=== PATIENT | female | born 1955 | race Caucasian/White ===

== ENCOUNTER → 2017-04-21 | Outpatient (CLI) | payer BC, OTHER ==
[~2017-04-21] MED LIST: ASPEC81 PO; CHOL100010 PO; DICL1GEL28; NAPR-1169 PO; PRMVC; SYN112 PO; TRIA0.1C20 TD
== END | disposition home or self-care (01) ==
LOC: C.LABPBG 12:04
PROVIDERS: ATTEND Physician Assistant
DX: H61.23 Impacted cerumen, bilateral (principal); H81.01 Meniere's disease, right ear

== ENCOUNTER 2021-10-31 08:00 | Inpatient (IN) ==
--- NOTE | 2021-10-24 13:33 | PAT Medication Instructions ---
Medication Instructions Date of Service October 24, 2021 Home Medications Medication Instructions Recorded fluocinolone acetonide oil 0.01 % 4 drp OTIC (EAR) BID PRN 0 Days 12/13/20 ear drops #20 ml benzonatate 100 mg capsule 100 mg PO BID PRN #90 cap 06/16/21 famotidine 20 mg tablet 20 mg PO QPM #90 tab 09/29/21 betamethasone, augmented 0.05 % topical cream 1 appln TOP QAM melatonin 3 mg capsule 3 mg PO HS PRN fluocinolone acetonide oil 0.01 % ear drops 4 drp OTIC (EAR) BID PRN lactobacillus combination no.4 3 billion cell capsule (Probiotic) 3,000 mmu cells PO DAILY benzonatate 100 mg capsule 100 mg PO BID PRN aspirin 81 mg tablet,delayed release (Adult Low Dose Aspirin) 81 mg PO QAM famotidine 20 mg tablet 20 mg PO QPM multivitamin 1 tab PO QAM calcium carbonate 600 mg calcium (1,500 mg) tablet (Calcium) 600 mg PO QAM digestive enzymes 1 tab PO DAILY estradiol 1 g VAGINAL .2x weekly levothyroxine 112 mcg tablet 112 mcg PO QAM mometasone 50 mcg/actuation nasal spray 2 spray INTRANASAL DAILY PRN omeprazole 20 mg capsule,delayed release 20 mg PO QAM potassium chloride 20 mEq tablet,extended release(part/cryst) 20 meq PO QAM triamterene 37.5 mg-hydrochlorothiazide 25 mg capsule 1 cap PO QAM ASK your surgeon for instructions estradiol 1 g VAGINAL .2x weekly ASK your prescriber and surgeon aspirin 81 mg tablet,delayed release (Adult Low Dose Aspirin) 81 mg PO QAM STOP taking 24 hours before surgery betamethasone, augmented 0.05 % topical cream 1 appln TOP QAM DO NOT take the morning of surgery lactobacillus combination no.4 3 billion cell capsule (Probiotic) 3,000 mmu cells PO DAILY benzonatate 100 mg capsule 100 mg PO BID PRN multivitamin 1 tab PO QAM calcium carbonate 600 mg calcium (1,500 mg) tablet (Calcium) 600 mg PO QAM digestive enzymes 1 tab PO DAILY potassium chloride 20 mEq tablet,extended release(part/cryst) 20 meq PO QAM triamterene 37.5 mg-hydrochlorothiazide 25 mg capsule 1 cap PO QAM Take morning of surgery With a small sip of water, OTHERWISE NOTHING TO EAT OR DRINK AFTER MIDNIGHT: fluocinolone acetonide oil 0.01 % ear drops 4 drp OTIC (EAR) BID PRN (if needed) levothyroxine 112 mcg tablet 112 mcg PO QAM mometasone 50 mcg/actuation nasal spray 2 spray INTRANASAL DAILY PRN (if needed) omeprazole 20 mg capsule,delayed release 20 mg PO QAM Take evening before surgery melatonin 3 mg capsule 3 mg PO HS PRN (if needed) fluocinolone acetonide oil 0.01 % ear drops 4 drp OTIC (EAR) BID PRN (if needed) benzonatate 100 mg capsule 100 mg PO BID PRN (if needed) famotidine 20 mg tablet 20 mg PO QPM mometasone 50 mcg/actuation nasal spray 2 spray INTRANASAL DAILY PRN (if needed) Other Notes If you have any questions please call us at [phone] or [phone] or [phone] or [phone]
--- NOTE | 2021-10-27 16:00 | Anesthesiology Consultation ---
Date of Service October 27, 2021 Assessment & Plan (1) Encounter for pre-operative examination: - Pt acceptable to proceed with exception to surgery name needed on booking sheet corrected by surgeon's office per OR. - cardio 07/08/21 [place]: "...SVT...seemed to correlate with fleeting palpitations...infrequent...normal evaluation...in the absence of new or worsening symptoms she does not require any additional cardiovascular disease...does not require any cardiology follow-up...could decrease the metoprolol dose to 12.5 mg daily for a month...in the absence of worsening symptoms she could eliminate the medication altogether..." - COVID screening: Per assessment on 10/27/2021: Travel screen negative, no known COVID-19 positive contacts or current COVID-19 related symptoms in past 2 weeks. Pt vaccinated. Surgeon arranging preop COVID testing, scheduled 10/29/2021. Awaiting results. Chart Review Chart Review: Pending: Refer to Additional Notes / Consult section and Patient seen in Pre Admission Testing Teaching & Discussion Pre-Anesthesia Teaching/Discussion Notes: Instructed NPO after midnight before surgery, except medications with 15 cc of water. Medication instructions provided according to the PAT guidelines. History Surgery Operation Date: 10/31/21 12:35 Proposed Procedures p Anterior Posterior Repair - Fransisco Frias MD Height/Weight Height: 5 ft 1 in Weight: 87.5 kg Allergies Allergy/AdvReac Type Severity Reaction Status Date / Time morphine Allergy Mild HIVES Verified 10/24/21 12:30 Influenza Virus Vaccines Allergy Unknown severe Verified 10/27/21 16:05 nausea and vomiting meperidine [From Demerol] Allergy Unknown Vomiting Verified 10/24/21 12:30 acetaminophen AdvReac Intermediate nausea, Verified 10/27/21 16:05 vomiting, spaced out oxycodone AdvReac Intermediate nausea, Verified 10/27/21 16:05 vomiting, spaced out zoster vaccine live AdvReac Intermediate severe Verified 10/27/21 16:05 nausea and vomiting codeine AdvReac Mild NAUSEA Verified 10/24/21 12:30 NARCOTICS Allergy Mild Vomiting Uncoded 10/24/21 12:31 Medications Home Medications Medication Instructions Recorded Confirmed Last Taken betamethasone, augmented 0.05 % 1 appln TOP QAM 01/10/20 10/24/21 Unknown topical cream melatonin 3 mg capsule 3 mg PO HS PRN 01/10/20 10/24/21 Unknown fluocinolone acetonide oil 0.01 % 4 drp OTIC (EAR) BID PRN 0 Days 12/13/20 10/24/21 Unknown ear drops #20 ml lactobacillus combination no.4 3 3,000 mmu cells PO DAILY 04/15/21 10/24/21 Unknown billion cell capsule (Probiotic) benzonatate 100 mg capsule 100 mg PO BID PRN #90 cap 06/16/21 10/24/21 Unknown aspirin 81 mg tablet,delayed 81 mg PO QAM 07/04/21 10/24/21 Unknown release (Adult Low Dose Aspirin) famotidine 20 mg tablet 20 mg PO QPM #90 tab 09/29/21 10/24/21 Unknown multivitamin 1 tab PO QAM 09/29/21 10/24/21 Unknown calcium carbonate 600 mg calcium 600 mg PO QAM 10/14/21 10/24/21 Unknown (1,500 mg) tablet (Calcium) digestive enzymes 1 tab PO DAILY 10/14/21 10/24/21 Unknown estradiol 1 g VAGINAL .2x weekly g 10/14/21 10/24/21 Unknown levothyroxine 112 mcg tablet 112 mcg PO QAM 10/24/21 10/24/21 Unknown mometasone 50 mcg/actuation nasal 2 spray INTRANASAL DAILY PRN 10/24/21 10/24/21 Unknown spray omeprazole 20 mg capsule,delayed 20 mg PO QAM 10/24/21 10/24/21 Unknown release potassium chloride 20 mEq 20 meq PO QAM 10/24/21 10/24/21 Unknown tablet,extended release(part/cryst) triamterene 37.5 1 cap PO QAM 10/24/21 10/24/21 Unknown mg-hydrochlorothiazide 25 mg capsule Past Medical History Medical History (Updated 10/27/21 @ 16:24 by Niya Juarez PA-C) Acid reflux controlled, stable per pt Conductive hearing loss, unilateral, right ear, with unrestricted hearing on the contralateral side FROM MENIERE'S DISEASE History of COVID-19 05/2021 LOSS OF TASTE AND SMELL, COUGH, CONGESTION, FEVER, ACHY, CHILLS-r esidual loss of taste or smell Hyperlipidemia Hypothyroidism Meniere disease Nausea and vomiting after administration of anesthetic agent denies needing scop patch SVT (supraventricular tachycardia) follows with [facility] and PCP, was advised can d/c beta shanta at 07/08/21 visit, pt denies change in chronic palpitations since d/c med Tricuspid regurgitation mild on 2019 echo Patient denies h/o stroke, seizures, heart attack, heart failure, DM, HTN, blood clots or blood transfusions. Exercise / Class Metabolic Activity II 4-5 Yardwork/Stairs/Walk up hill (denies CP or SOB with 1 FOS) Past Family History Family History Father Family history of bleeding disorder Myocardial infarction Pancreatic cancer Sinusitis Brother Asthma Mother Stroke Hypertension Uncle Colorectal cancer Grandfather (Paternal) Myocardial infarction Other Ellis's palsy Denies family history of Ovarian cancer Prostate cancer Hearing loss Allergies Breast cancer Past Surgical History Surgical History (Updated 10/27/21 @ 16:06 by Niya Juarez PA-C) History of cholecystectomy stent placed History of elbow surgery R tendon repair History of hernia repair History of hysterectomy History of pancreatic surgery S/P arthroscopic knee surgery RIGHT Past Anesthesia History No Family Hx of Anesthesia Complications and Other (slow to wake-denies re- intubation or unanticipated hospitalizations) History of PONV History of PONV (denies needing scop patch) and Hx of Motion Sickness Social History Smoking Status: Never smoker Do You Dip or Chew Tobacco: No Hx Alcohol Use: No Hx Substance Use: No substance use type: does not use Review of Systems Snoring, denies witnessed apneas or sleep studies. Patient denies chest pain, shortness of breath, dyspnea on exertion, fever, chills, cough, or wheezing. Physical Exam Vital Signs Vitals BP 127/84 P 59 TEMP 97.6 SP02 98% on RA RESP 17 Physical Full cervical extension range of motion without pain TMD 3.5 finger breaths Mallampati Score 3 Dentition: intact, denies loose or chipped teeth, caps/crowns, implants or bridges Lungs: normal respiratory effort. Clear throughout to auscultation, no adventitious breath sounds Cardiac: regular rate and rhythm, no murmurs noted Carotid arteries: negative bruit bilat Lab Results Anesthesia Preop Results Results Anesthesia Widget: WBC 6.92 K/uL (4.8-10.8) 10/27/21 Hgb 15.4 g/dL (12.0-16.0) 10/27/21 Hct 43.7 % (37-47) 10/27/21 Plt 199 K/uL (130-400) 10/27/21 Na 139 mmol/L (136-145) 10/27/21 K 3.6 mmol/L (3.5-5.1) 10/27/21 Cl 101 mmol/L (98-107) 10/27/21 CO2 31 mmol/L (21-32) 10/27/21 BUN 11 mg/dl (6-23) 10/27/21 Creat 0.89 mg/dl (0.6-1.2) 10/27/21 Glucose Level 83 mg/dl (70-99(Fasting)) 10/27/21 PT 10.3 Seconds (9.0-12.0) 10/27/21 PTT 24.8 Seconds (21.0-31.0) 10/27/21 INR 1.0 (0.9-1.1) 10/27/21 HA1c 5.4 % (4.5-5.6) 10/15/21 Blood Type A Positive 10/27/21 Antibody Screen NEGATIVE 10/27/21 Testing Electrocardiogram Date: 02/17/21 NSR, rate 61 bpm Chest X-Ray Date: 07/23/21 No acute process Echocardiogram Date: 01/31/20 EF 55-59% Mild tricuspid regurgitation No evidence of pulmonary hypertension
--- NOTE | 2021-10-28 14:46 | History and Physical Report ---
DATE OF ADMISSION: 10/31/2021 CHIEF COMPLAINT: Mass protruding from the vagina. HISTORY OF PRESENT ILLNESS: The patient is a 66-year-old 3, para 2, had one spontaneous AB at 20 weeks, underwent a total abdominal hysterectomy, bilateral salpingo-oophorectomy at age 53 for pelvic pain. She has had a mass protruding from the vagina when she coughs, sneezes or strains, present for over 6 months, getting progressively worse, makes her uncomfortable. At times she has to void real frequently. Incontinence is moderate, but getting progressively worse. Her symptoms are also increasing in severity. She is presently being scheduled for an outpatient anterior repair, possible posterior repair and insertion of a suprapubic cysto cath. PAST SURGICAL HISTORY: Had a TULIO-BSO, had her gallbladder removed, had a right elbow surgery, right knee surgery. PAST MEDICAL HISTORY: She is on a blood pressure medication medication for Meniere's disease. SOCIAL HISTORY: No smoking. No excessive alcohol intake. Retired. FAMILY HISTORY: Two children in good health. Mom at age 71, stroke, myocardial infarction, congestive heart failure. Father at age 75, myocardial infarction, eventually he from pancreatic cancer. She had one brother that was born with a cardiac defect, at . She had another brother at age 59, is a survivor of hairy cell leukemia and has a history of asthma. REVIEW OF SYSTEMS: HEAD: No symptoms of frequent or severe headaches. EYES: No symptoms of blurred vision or double vision. EARS: No symptoms of frequent ear infection or difficulty hearing. NOSE: No symptoms of frequent nosebleeds or difficulty breathing through her nose. THROAT: No symptoms of frequent or severe sore throat or difficulty swallowing. RESPIRATORY: No history of asthma, chest pain, or shortness of breath. PHYSICAL EXAMINATION: GENERAL: Well-developed, well-nourished 66-year-old white female, alert, oriented x3, cooperative, in no acute distress, appeared her stated age. EYES: Conjunctivae are pink. Sclerae white, no evidence of jaundice. EARS: Had normal light reflex bilaterally. NOSE: Had normal mucosa. Septum is midline. There were no polyps. THROAT: No erythema or evidence of infection. Teeth are in good state of repair. HEAD: Normocephalic, normal distribution of hair. NECK: Supple. Trachea midline. Thyroid is not enlarged. There is no adenopathy appreciated. Both carotids are of good intensity. CHEST: Clear to auscultation and percussion. No wheezes, rales or rhonchi appreciated. HEART: Had regular rhythm. S1 and S2 are normal. BREASTS: Normal. ABDOMEN: Revealed a well-healed Pfannenstiel scar. PELVIC: Revealed good support of the vaginal cuff. A second degree cystocele, which protruded through the vaginal opening when she coughs, sneezes or strains. MUSCULOSKELETAL: Revealed no calf tenderness. IMPRESSION OF THIS CASE: Status post cholecystectomy, status post total abdominal hysterectomy with bilateral salpingo-oophorectomy, status post right elbow surgery, status post right knee surgery and symptomatic cystocele. Job ID: [id number] [facility]
[~2021-10-31 08:00] MED LIST changes: +ACETAMINOPHEN 1000 MG/100 ML IV IV ONE; -ASPEC81 PO; -CHOL100010 PO; -DICL1GEL28; +FAMOTIDINE/PF 20 MG/2 ML VIAL IV ONE; +LR 15ML/HR IV SCH; -NAPR-1169 PO; -PRMVC; +ROCURONIUM BROMIDE 10 MG/ML 5 ML VIAL IV ONE; +SCOPOLAMINE 1 MG TDSY TD ONE; -SYN112 PO; -TRIA0.1C20 TD; +cefOXitin 2,000 MG in DEXTROSE 5% 50 ML IV SCH
[2021-10-31] MEDS ORDERED: MIDAZOLAM HCL 1 MG/ML 2ML VIAL ONE (08:03)
[2021-10-31] MEDS ORDERED: fentaNYL citrate 100 MCG/2 ML VIAL ONE ×2 (08:04→12:23)
[2021-10-31] MEDS ORDERED: METOCLOPRAMIDE HCL INJ 5 MG/ML 2 ML VIAL ONE (08:05)
[2021-10-31] MEDS ORDERED: ONDANSETRON INJ 2 MG/ML 2 ML VIAL ONE (08:05)
[2021-10-31] MEDS ORDERED: DEXAMETHASONE SOD INJ 4 MG/ML VIAL ONE (08:05)
[2021-10-31] MEDS ORDERED: PROPOFOL IV EMULSION 10 MG/ML 20 ML VIAL IV ONE (08:05)
[2021-10-31] MEDS ORDERED: LIDOCAINE 2% 2 ML VIAL/AMP(20MG/ML) INFIL ONE (08:05)
[2021-10-31] MEDS ORDERED: ONDANSETRON INJ 2 MG/ML 2 ML VIAL IV PRN (09:05)
[2021-10-31] MEDS ORDERED: ATROPINE SULFATE 0.1 MG/ML 10ML SYR IV PRN (09:05)
[2021-10-31] MEDS ORDERED: ePHEDrine sulfate 50 MG/ML AMP IV PRN (09:05)
[2021-10-31] MEDS ORDERED: LIDOCAINE 1%/EPINEPHRINE 1:100,000 50 ML VIAL ONE (09:25)
--- NOTE | 2021-10-31 09:40 | History & Physical Bridge Note ---
Date of Service October 31, 2021 History & Physical Bridge Note I have examined the patient, reviewed the History & Physical and in the interval since the performance of the History & Physical I have noted the following changes of clinical significance: no changes noted
[2021-10-31] MEDS ORDERED: diphenhydrAMINE 50 MG/ML VIAL ONE ×2 (10:20→10:34)
[2021-10-31] MEDS ORDERED: KETOROLAC 30 MG/ML VIAL ONE (10:35)
[2021-10-31] MEDS ORDERED: NEOSTIGMINE METHYLSULFATE 1 MG/ML 10ML VIAL ONE (10:53)
[2021-10-31] MEDS ORDERED: GLYCOPYRROLATE 0.2 MG/ML VIAL ONE (10:53)
[2021-10-31] MEDS ORDERED: PREMARIN VAG CRM 14 APPLN/30 GM TUBE ONE (11:33)
[2021-10-31] MEDS ORDERED: ACETAMINOPHEN 1000 MG/100 ML IV IV ONE (11:56)
--- NOTE | 2021-10-31 12:17 | Post Operative Brief Note ---
Immediate Post Op Note v1 Date of Surgery October 31, 2021 Pre & Post Diagnosis Operation Date: 10/31/21 09:50 Pre-Op Diagnosis: Cystocele, Urinary Frequency, Rectocele Post-Op Diagnosis: Cystocele I identified the patient and participated in the time-out.: Yes Procedure Operation Date: 10/31/21 09:50 Actual Procedures p Anterior Colpoperineorrhaphy with Insertion of Subrapubic Cystocath(Not Applicable) - Fransisco Frias MD Surgeon Fransisco Frias MD Bottom Polisher none Estimated Blood Loss 20 Findings Consistent with Post-Op Diagnosis third degree cystocele Drains Suprapubic Catheter Anesthesia Type General Complications none Disposition Disposition: Recovery Room
--- NOTE | 2021-10-31 12:30 | Anesthesiology Progress Note ---
Date of Service October 31, 2021 Anesthesia Post Procedure Vital Signs Vital Signs: Temp Pulse Resp BP Pulse Ox 10/31/21 08:44 98.2 F 67 22 127/79 96 Transfer of Care Handoff Completed per policy Notes Mental Status: alert / awake / arousable and participated in evaluation Patient Amnestic to Procedure: Yes Nausea / Vomiting: adequately controlled Pain: adequately controlled Airway Patency, RR, SpO2: stable & adequate BP & HR: stable & adequate Hydration State: stable & adequate Anesthetic Complications: no major complications apparent and Pt Satisfied with anesthetic care
[2021-10-31] MEDS: fentaNYL citrate 100 MCG/2 ML VIAL IV PRN ×2 (12:44→12:49)
[2021-10-31] MEDS ORDERED: bisacodyL 10 MG SUPP PR PRN (14:18)
[2021-10-31] MEDS ORDERED: MAGNESIUM HYDROXIDE SUSP 30 ML UDC PO PRN (14:18)
[2021-10-31] MEDS ORDERED: SENNA 8.6 MG TAB PO PRN (14:18)
[2021-10-31] MEDS ORDERED: MEPERIDINE HCL 50 MG/ML CARP IV PRN (14:18)
[2021-10-31] MEDS: KETOROLAC 30 MG/ML VIAL IV PRN ×2 (14:44→22:29)
--- NOTE | 2021-10-31 15:54 | Electrocardiogram Report ---
Test Reason : Blood Pressure : / mmHG Vent. Rate : 064 BPM Atrial Rate : 064 BPM P-R Int : 154 ms QRS Dur : 086 ms QT Int : 424 ms P-R-T Axes : 042 028 045 degrees QTc Int : 437 ms Normal sinus rhythm Normal ECG When compared with ECG of 10-FEB-2019 14:12, No significant change was found Confirmed by Scott Osullivan ([id number]) on 10/31/2021 3:54:00 PM Referred By: Fransisco Frias Confirmed By:Scott Osullivan
[2021-10-31] MEDS: D5W AND LACTATED RINGERS 1,000 ML IV SCH (16:07)
--- NOTE | 2021-10-31 16:41 | Operative Report (OR) ---
DATE OF PROCEDURE: 10/31/2021 PROCEDURE PERFORMED: Anterior colporrhaphy, insertion of suprapubic cysto cath. INDICATIONS FOR SURGERY: Mass protruding from the vagina on coughing or sneezing, incomplete emptying of the bladder. PREOPERATIVE DIAGNOSIS: Symptomatic cystocele, second to third degree. POSTOPERATIVE DIAGNOSIS: Symptomatic cystocele, second to third degree. SURGEON: Marlene Frias MD. ESTIMATED BLOOD LOSS: 20 mL. ANESTHESIA: General. OPERATIVE FINDINGS AND PROCEDURE: The patient was brought to the OR table, correctly identified by a rmband and conversation. General anesthesia was administered. Perineum and vagina were painted with Betadine paint, draped in usual sterile fashion. Careful pelvic exam revealed a second to third deg ree cystocele. We emptied the bladder, obtained 400 mL. We then did a Betadine prep and draped in t he usual sterile fashion and proceeded with an anterior colporrhaphy. I grabbed the anterior vaginal mucosa 1 cm from the external urethral meatus in the midline, infiltrated the cystocele with local w ith epinephrine, then started the incision with a knife and carried the incision up to the vaginal cu ff with the baby Yan. Then, I carefully dissected the bladder off the anterior vaginal mucosa and th is included the support tissues to the bladder neck. I then used a 3-0 Vicryl with interrupted figur e-of-eight sutures to reduce the cystocele. This was done in 2 layers because of the size of the cys tocele. Then, the excess vaginal mucosa was removed. A support stitch was placed at the urethrovesic al angle with a heavy chromic gut suture and this brought the paravaginal tissues under the urethral angle for support and in addition, we did a mattress suture to bolster that support also. We then ap proximated the vaginal mucosa with interrupted [id number] sutures of 3-0 Vicryl up to the vagina l cuff. At this time, I checked the vaginal capacity, it was adequate, accepted 2 fingers with a anamaria le bit of leeway, we decided against doing a rectocele feeling that it would compromise vaginal volum e and sexual function. Following this, we removed the urine in the bladder that was clear. We then instilled 480 mL of normal saline, prepped the suprapubic area. I used a trocar to enter the bladder and then inserted a catheter and then I sewed a catheter in place with silk suture. I then followin g this removed about 240 mL of urine and connected it to gravity drainage. We also packed the vagina with a ____ of 1 inch iodoform packing with estrogen cream. The patient tolerated the procedure well . Estimated blood loss was only 20 mL. Job ID: [id number]
--- NOTE | 2021-10-31 17:42 | Anesthesiology Progress Note ---
Date of Service October 31, 2021 Anesthesia Post Procedure Vital Signs Vital Signs: Temp Pulse Pulse Resp BP BP Pulse Ox 10/31/21 17:00 69 16 118/75 98 10/31/21 16:00 36.3 C L 58 L 16 110/72 95 10/31/21 15:00 63 18 125/83 96 10/31/21 14:25 56 L 18 123/70 97 10/31/21 13:55 36.4 C L 56 L 18 131/85 98 10/31/21 13:35 36.5 C 59 L 16 136/78 99 10/31/21 13:25 59 L 18 129/80 100 10/31/21 13:15 52 L 17 143/79 H 100 10/31/21 13:05 36.6 C 65 12 130/91 100 10/31/21 12:55 70 14 134/93 93 10/31/21 12:45 68 16 124/86 93 10/31/21 12:35 70 17 139/87 100 10/31/21 12:25 63 14 147/86 H 100 10/31/21 12:14 36.4 C L 80 19 152/107 H 98 10/31/21 08:44 36.8 C 67 22 127/79 96 Pain Intensity Abdomen: Pain Intensity: 4 Transfer of Care Handoff Completed per policy Notes Mental Status: alert / awake / arousable Patient Amnestic to Procedure: Yes Nausea / Vomiting: adequately controlled Pain: adequately controlled Airway Patency, RR, SpO2: stable & adequate BP & HR: stable & adequate Hydration State: stable & adequate Anesthetic Complications: no major complications apparent
[2021-11-01 00:51] LABS: Hematocrit (blood only) 41.3 % (37-47); Hemoglobin 14.5 g/dL (12.0-16.0)
[2021-11-01] MEDS: KETOROLAC 30 MG/ML VIAL IV PRN (06:24)
--- NOTE | 2021-11-01 09:09 | Obstetrical Progress Note ---
Date of Service November 01, 2021 Assessment & Plan Admission and Anticipated Discharge Date Admission Date: October 31, 2021 Subjective urine clear output good no calf tenderness abdomen soft and non tender vaginal packing in place vaginal bleeding scant hgb 14.5 Results & Data ([facility]) Vital Signs (Past 12 Hours) Vital Signs Temp Pulse Resp BP Pulse Ox 11/01/21 04:25 36.8 C 66 16 101/68 95 11/01/21 00:00 36.8 C 60 18 103/63 93
[2021-11-01] MEDS: IBUPROFEN 600 MG TAB PO PRN ×3 (09:44→21:27)
[2021-11-01] MEDS: POTASSIUM CHLORIDE CRTAB 20 MEQ TABCR PO SCH (11:03)
[2021-11-01] MEDS: ACETAMINOPHEN 325 MG TAB PO PRN (11:03)
[2021-11-01] MEDS: ASPIRIN 81 MG ECTAB PO SCH (11:04)
[2021-11-01] MEDS: TRIAMTERENE/HCTZ 37.5/25MG CAP PO SCH (11:04)
[2021-11-01] MEDS: LEVOTHYROXINE SODIUM 112 MCG TABLET PO SCH (14:07)
[2021-11-01] MEDS: D5W AND LACTATED RINGERS 1,000 ML IV SCH ×2 (18:44→22:00)
[2021-11-01] MEDS: FAMOTIDINE 20 MG TAB PO SCH (21:24)
[2021-11-01] MEDS: oxyCODONE/ACETAMINOPHEN 5mg/325mg TAB PO PRN (21:27)
[2021-11-02] MEDS: ACETAMINOPHEN 325 MG TAB PO PRN (04:29)
[2021-11-02] MEDS: POTASSIUM CHLORIDE CRTAB 20 MEQ TABCR PO SCH (07:50)
[2021-11-02] MEDS: ASPIRIN 81 MG ECTAB PO SCH (07:50)
[2021-11-02] MEDS: LEVOTHYROXINE SODIUM 112 MCG TABLET PO SCH (07:51)
[2021-11-02] MEDS: PANTOprazole 40 MG TAB PO SCH (07:51)
[2021-11-02] MEDS: TRIAMTERENE/HCTZ 37.5/25MG CAP PO SCH (07:51)
--- NOTE | 2021-11-02 07:59 | Obstetrical Progress Note ---
Date of Service November 02, 2021 Assessment & Plan Admission and Anticipated Discharge Date Admission Date: October 31, 2021 Subjective vaginal packing removed urine clear out put good no calf tenderness ambulating well Results & Data ([facility]) Vital Signs (Past 12 Hours) Vital Signs Temp Pulse Resp BP Pulse Ox 11/02/21 04:15 36.4 C L 63 18 103/66 95 11/02/21 00:40 36.4 C L 71 18 109/72 96
[2021-11-02] MEDS: IBUPROFEN 600 MG TAB PO PRN ×2 (08:07→16:17)
[2021-11-02] MEDS: FAMOTIDINE 20 MG TAB PO SCH (19:49)
[2021-11-03] MEDS: IBUPROFEN 600 MG TAB PO PRN ×3 (00:02→17:53)
[2021-11-03] MEDS: oxyCODONE/ACETAMINOPHEN 5mg/325mg TAB PO PRN ×2 (00:59→06:21)
[2021-11-03] MEDS: LEVOTHYROXINE SODIUM 112 MCG TABLET PO SCH (06:21)
[2021-11-03] MEDS: TRIAMTERENE/HCTZ 37.5/25MG CAP PO SCH ×2 (07:07→09:37)
--- NOTE | 2021-11-03 08:05 | Obstetrical Progress Note ---
Date of Service November 03, 2021 Assessment & Plan Admission and Anticipated Discharge Date Admission Date: October 31, 2021 Subjective abdomen soft and non tender urine clear output plentiful no calf tenderness ambulating well will start clamping suprapubic catheter Results & Data [facility]) Vital Signs (Past 12 Hours) Vital Signs Temp Pulse Resp BP Pulse Ox 11/03/21 07:04 36.5 C 60 20 115/74 98 11/03/21 00:09 36.4 C L 58 L 24 124/79 93
[2021-11-03] MEDS ORDERED: ONDANSETRON 4 MG OD TAB PO PRN (08:33)
[2021-11-03] MEDS ORDERED: POLYETHYLENE (MIRALAX) 17 GM PACK PO PRN (08:35)
[2021-11-03] MEDS: ASPIRIN 81 MG ECTAB PO SCH (09:37)
[2021-11-03] MEDS: POTASSIUM CHLORIDE CRTAB 20 MEQ TABCR PO SCH (09:37)
[2021-11-03] MEDS: PANTOprazole 40 MG TAB PO SCH (09:37)
--- NOTE | 2021-11-03 13:54 | Discharge Summary (DS) ---
DATE OF ADMISSION: 10/31/2021 DATE OF DISCHARGE: 11/03/2021 Mrs. Peñaloza was brought in for surgery for symptomatic third-degree cystocele, which was popping out o f her vagina when she coughed, sneezed or strained. It was getting progressively worse. She was adm itted for an anterior and a possible posterior colporrhaphy. On the day of admission, she was given prophylactic antibiotics, taken to the OR. She underwent an anterior repair, anterior colporrhaphy w ith insertion of suprapubic catheter. She did not have enough vaginal room or need of posterior repa ir. Postoperatively, she had vaginal packing, it was removed on the second postoperative day. She re mained afebrile throughout her postoperative course. Her postoperative hemoglobin was 14.5, preopera tive hemoglobin was 15.4. On the third postoperative day, we started clamping the suprapubic cathete r and she was to be discharged with instructions on how to manage her catheter at home and to start c lamping at 3 hours at a time at home during the day, leave it open at night and to call when she is v oiding over 200 mL at a time and also when she has residuals under 100. She is also to call if she h as a temperature over 100 or any heavy bleeding. Job ID: [id number]
== END 2021-11-03 18:41 | disposition home or self-care (01) | DRG 748 ==
LOC: ASU 08:00 → 4E1 12:15
PROC: M.APREP (2021-10-31 09:50)